=== PATIENT | male | born 1990 | race Caucasian/White ===

== ENCOUNTER 2017-08-17 13:36 | Inpatient (IN) | payer MEDICAID ==
[~2017-08-17] VITALS: Ht 180.3 cm; Wt 123.8 kg
[2017-08-17] MEDS ORDERED: DEPAKOTE ER500 MG PO (14:37)
[2017-08-17] MEDS ORDERED: ZYPREXA ZYDIS20 MG PO (14:38)
[2017-08-17 15:01] LABS: PLATELET COUNT 256 x10^3mcL (130-400); RED CELL DISTRIBUTION WIDTH 12.5 % (11.5-14.5)
[2017-08-17 15:03] LABS: BASOPHIL % 0 % (0-2)
[2017-08-17 15:09] LABS: CALCIUM 8.4 mg/dL (8.5-10.1); CARBON DIOXIDE 24.7 mmol/L (21-32); CHLORIDE SERUM 96 mmol/L (98-107); CREATININE SERUM 0.9 mg/dL (0.7-1.3); GFR1 > 60 mL/min; GLUCOSE SERUM 107 mg/dL (74-106); POTASSIUM SERUM 3.2 mmol/L (3.5-5.1); SODIUM SERUM 132 mmol/L (136-145)
[2017-08-17 15:13] LABS: ALBUMIN 2.8 g/dL (3.4-5.0); ALKALINE PHOSPHATASE 91 U/L (46-116); ALT/SGPT 22 U/L (16-63); AST/SGOT 16 U/L (15-37); BILIRUBIN TOTAL 0.6 mg/dL (0.20-1.00); TOTAL PROTEIN, SERUM 7.5 g/dL (6.4-8.2)
[2017-08-17 17:11] LABS: MAGNESIUM 1.7 mg/dL (1.8-2.4); PHOSPHOROUS 2.7 mg/dL (2.5-4.9)
[2017-08-17 17:12] LABS: CHOLESTEROL/HDL RATIO 4.7
[2017-08-17 17:13] LABS: T3 TOTAL 0.54 ng/mL
[2017-08-17 17:19] LABS: FREE T4 1.31 ng/dL (0.76-1.46); FREE THYROXINE INDEX 2.8 ug/dL (1.4-4.5); T4(THYROXINE) 8.1 ug/dL (4.7-13.3)
[2017-08-17 18:17] VITALS: BP 118/51
[2017-08-17 20:57] VITALS: BP 104/54
[2017-08-18 05:21] VITALS: BP 101/51
[2017-08-18 06:44] LABS: CHLORIDE SERUM 100 mmol/L (98-107); GFR1 > 60 mL/min; GLUCOSE SERUM 108 mg/dL (74-106); MAGNESIUM 1.9 mg/dL (1.8-2.4); POTASSIUM SERUM 3.2 mmol/L (3.5-5.1); SODIUM SERUM 134 mmol/L (136-145)
[2017-08-18 06:50] LABS: BASOPHIL % 0.1 % (0-2); PLATELET COUNT 229 x10^3mcL (130-400); RED CELL DISTRIBUTION WIDTH 12.9 % (11.5-14.5)
[2017-08-18 08:56] VITALS: BP 109/56
[2017-08-18 12:17] VITALS: BP 117/63
[2017-08-18 13:32] LABS: UA SPECIFIC GRAVITY 1.025 (1.005-1.035); microscopic required? YES; urine erythrocyte NEGATIVE (NEGATIVE)
[2017-08-18 13:46] LABS: AMPHETAMINE QUAL UR NONE DETECTED (NEG <=1000)
[2017-08-18 17:18] VITALS: BP 102/52
[2017-08-18 21:02] VITALS: BP 117/58
[2017-08-19 05:28] VITALS: BP 108/43
[2017-08-19 06:45] LABS: BASOPHIL % 0.2 % (0-2); PLATELET COUNT 262 x10^3mcL (130-400); RED CELL DISTRIBUTION WIDTH 13.5 % (11.5-14.5)
[2017-08-19 06:55] LABS: CARBON DIOXIDE 23.5 mmol/L (21-32); CHLORIDE SERUM 102 mmol/L (98-107); CREATININE SERUM 0.9 mg/dL (0.7-1.3); GFR1 > 60 mL/min; GLUCOSE SERUM 98 mg/dL (74-106); POTASSIUM SERUM 3.8 mmol/L (3.5-5.1); SODIUM SERUM 136 mmol/L (136-145)
[2017-08-19 09:43] VITALS: BP 114/40
[2017-08-19 16:52] VITALS: BP 116/57
[2017-08-19 19:30] VITALS: BP 110/57
[2017-08-20 06:17] LABS: BASOPHIL % 0.3 % (0-2); PLATELET COUNT 303 x10^3mcL (130-400); RED CELL DISTRIBUTION WIDTH 13.7 % (11.5-14.5)
[2017-08-20 06:20] LABS: CALCIUM 8.4 mg/dL (8.5-10.1); CARBON DIOXIDE 26.6 mmol/L (21-32); CHLORIDE SERUM 104 mmol/L (98-107); CREATININE SERUM 0.8 mg/dL (0.7-1.3); GFR1 > 60 mL/min; GLUCOSE SERUM 92 mg/dL (74-106); POTASSIUM SERUM 4.1 mmol/L (3.5-5.1); SODIUM SERUM 136 mmol/L (136-145)
[2017-08-20 06:39] VITALS: BP 117/58
[2017-08-20 09:54] VITALS: BP 92/54
[2017-08-20] MEDS ORDERED: CLEOCIN HCL300 MG PO (10:16)
[2017-08-20 10:42] VITALS: BP 92/54
[2017-08-20 12:08] VITALS: Ht 180.3 cm; Wt 123.8 kg
[2017-08-20] MEDS ORDERED: LEVOFLOXACIN500 M1 PO (12:18)
== END 2017-08-20 13:21 | disposition home or self-care (01) | DRG 720 ==
LOC: ED 13:36 → MU 16:20 → DU 16:20 → MU 08-19 08:38
PROVIDERS: Emergency Medicine; Family Medicine
DX: A41.9 Sepsis, unspecified organism (principal); E43 Unspecified severe protein-calorie malnutrition; E87.1 Hypo-osmolality and hyponatremia; E83.42 Hypomagnesemia; F20.9 Schizophrenia, unspecified; B35.3 Tinea pedis; L03.115 Cellulitis of right lower limb; B96.4 Proteus (mirabilis) (morganii) as the cause of diseases classified elsewhere; B95.61 Methicillin susceptible Staphylococcus aureus infection as the cause of diseases classified elsewhere; B95.1 Streptococcus, group B, as the cause of diseases classified elsewhere; F10.239 Alcohol dependence with withdrawal, unspecified; Z68.35 Body mass index [BMI] 35.0-35.9, adult
CPT/HCPCS: 83880; 84439; 90715; G0480; J0295; J1885; J1956; J3490; J7030; Q0092

== ENCOUNTER 2017-08-21 10:46 | Emergency (ER) | payer MEDICAID ==
[~2017-08-21] VITALS: Ht 180.3 cm; Wt 104.3 kg
[~2017-08-21 10:46] MED LIST: CLEOCIN HCL300 MG PO; DEPAKOTE ER500 MG PO; LEVOFLOXACIN500 M1 PO; ZYPREXA ZYDIS20 MG PO
[2017-08-21 10:59] VITALS: Ht 180.3 cm; Wt 104.3 kg
[2017-08-21 11:55] LABS: BASOPHIL % 0.5 % (0-2); RED CELL DISTRIBUTION WIDTH 13.9 % (11.5-14.5)
[2017-08-21 11:58] LABS: PLATELET COUNT 406 x10^3mcL (130-400)
[2017-08-21 12:06] LABS: CARBON DIOXIDE 27.7 mmol/L (21-32); CHLORIDE SERUM 105 mmol/L (98-107); CREATININE SERUM 0.8 mg/dL (0.7-1.3); GFR1 > 60 mL/min; GLUCOSE SERUM 104 mg/dL (74-106); POTASSIUM SERUM 4.3 mmol/L (3.5-5.1); SODIUM SERUM 141 mmol/L (136-145)
[2017-08-21 12:10] LABS: ALKALINE PHOSPHATASE 86 U/L (46-116); ALT/SGPT 25 U/L (16-63); AST/SGOT 25 U/L (15-37); BILIRUBIN TOTAL 0.34 mg/dL (0.20-1.00); TOTAL PROTEIN, SERUM 7.6 g/dL (6.4-8.2)
[2017-08-21 12:11] LABS: ALBUMIN 2.3 g/dL (3.4-5.0)
[2017-08-21 13:51] LABS: microscopic required? NO
[2017-08-21 14:13] LABS: urine erythrocyte NEGATIVE (NEGATIVE)
[2017-08-21 15:44] LABS: T3 TOTAL 0.96 ng/mL
[2017-08-21 15:48] LABS: MAGNESIUM 2.5 mg/dL (1.8-2.4); PHOSPHOROUS 3.3 mg/dL (2.5-4.9)
[2017-08-21 15:53] LABS: FREE T4 1.29 ng/dL (0.76-1.46); T4(THYROXINE) 8.5 ug/dL (4.7-13.3)
[2017-08-21 15:54] LABS: CHOLESTEROL/HDL RATIO 28.2
[2017-08-21 15:56] LABS: AMPHETAMINE QUAL UR NONE DETECTED (NEG <=1000)
[2017-08-22 09:00] VITALS: BP 132/74
== END 2017-08-22 09:00 | disposition home or self-care (01) ==
LOC: ED 10:46
PROVIDERS: Emergency Medicine; Family Medicine
DX: L03.115 Cellulitis of right lower limb (principal)
CPT/HCPCS: 83880; 84439; J0295; J1956; J2270; J2405; J3490; J7030; Q0092

== ENCOUNTER 2017-08-30 12:03 | Emergency (ER) | payer MEDICAID ==
[~2017-08-30] VITALS: Ht 180.3 cm; Wt 120.7 kg
[2017-08-30 12:11] VITALS: Ht 180.3 cm; Wt 120.7 kg
[2017-08-30 13:49] LABS: BASOPHIL % 0.4 % (0-2); RED CELL DISTRIBUTION WIDTH 13.9 % (11.5-14.5)
[2017-08-30 13:56] LABS: CALCIUM 8.9 mg/dL (8.5-10.1); CARBON DIOXIDE 28.9 mmol/L (21-32); CHLORIDE SERUM 101 mmol/L (98-107); CREATININE SERUM 0.9 mg/dL (0.7-1.3); GFR1 > 60 mL/min; GLUCOSE SERUM 99 mg/dL (74-106); POTASSIUM SERUM 3.8 mmol/L (3.5-5.1); SODIUM SERUM 140 mmol/L (136-145)
[2017-08-30 14:06] LABS: PLATELET COUNT 674 x10^3mcL (130-400)
[2017-08-30 16:07] LABS: PHOSPHOROUS 3.4 mg/dL (2.5-4.9)
[2017-08-30 16:10] LABS: CHOLESTEROL/HDL RATIO 5.2; T3 TOTAL 1.03 ng/mL
[2017-08-30 16:56] LABS: microscopic required? NO
[2017-08-30 17:01] LABS: FREE T4 1.22 ng/dL (0.76-1.46); FREE THYROXINE INDEX 3.1 ug/dL (1.4-4.5); T4(THYROXINE) 9.2 ug/dL (4.7-13.3)
[2017-08-30 18:27] LABS: urine erythrocyte NEGATIVE (NEGATIVE)
[2017-08-30 18:39] LABS: AMPHETAMINE QUAL UR POSITIVE (NEG <=1000)
[2017-08-30 20:20] VITALS: BP 98/55
== END 2017-08-30 20:20 | disposition home or self-care (01) ==
LOC: ED 12:03
PROVIDERS: Emergency Medicine; Family Medicine
DX: L03.115 Cellulitis of right lower limb (principal); J45.909 Unspecified asthma, uncomplicated; F90.9 Attention-deficit hyperactivity disorder, unspecified type; F17.210 Nicotine dependence, cigarettes, uncomplicated
CPT/HCPCS: 83880; 84439; J0295; J1885; J3490; J7030; Q0092

== ENCOUNTER 2017-10-09 15:01 | Emergency (ER) | payer MEDICAID ==
[~2017-10-09] VITALS: Ht 180.3 cm; Wt 121.1 kg
[2017-10-09 15:07] VITALS: Ht 180.3 cm; Wt 121.1 kg
[2017-10-09 16:02] LABS: PLATELET COUNT 253 x10^3mcL (130-400)
[2017-10-09 16:06] LABS: BASOPHIL % 3.4 % (0-2); RED CELL DISTRIBUTION WIDTH 14.6 % (11.5-14.5)
[2017-10-09 16:21] LABS: CALCIUM 8.7 mg/dL (8.5-10.1); CARBON DIOXIDE 25.1 mmol/L (21-32); CHLORIDE SERUM 104 mmol/L (98-107); GFR1 > 60 mL/min; GLUCOSE SERUM 102 mg/dL (74-106); POTASSIUM SERUM 3.6 mmol/L (3.5-5.1); SODIUM SERUM 140 mmol/L (136-145)
[2017-10-09 16:26] LABS: ALBUMIN 3.4 g/dL (3.4-5.0); ALKALINE PHOSPHATASE 130 U/L (46-116); ALT/SGPT 20 U/L (16-63); AMYLASE 65 U/L (25-115); AST/SGOT 18 U/L (15-37); BILIRUBIN TOTAL 0.2 mg/dL (0.20-1.00); HDL CHOLESTEROL 47 mg/dL (40-60); LIPASE 117 IU/L (73-393); MAGNESIUM 2.3 mg/dL (1.8-2.4); TOTAL PROTEIN, SERUM 8.2 g/dL (6.4-8.2)
[2017-10-09 16:30] LABS: CHOLESTEROL 203 mg/dL (<200)
[2017-10-09 17:12] LABS: microscopic required? NO
[2017-10-09 17:17] LABS: UA SPECIFIC GRAVITY <=1.005 (1.005-1.035); urine erythrocyte NEGATIVE (NEGATIVE)
[2017-10-09 17:26] LABS: AMPHETAMINE QUAL UR NONE DETECTED (NEG <=1000)
[2017-10-09 18:10] VITALS: BP 117/70
== END 2017-10-09 18:10 | disposition home or self-care (01) ==
LOC: ED 15:01
PROVIDERS: Emergency Medicine
DX: R07.9 Chest pain, unspecified (principal); F20.89 Other schizophrenia; F31.89 Other bipolar disorder; F90.8 Attention-deficit hyperactivity disorder, other type; F17.210 Nicotine dependence, cigarettes, uncomplicated; F12.90 Cannabis use, unspecified, uncomplicated; E66.8 Other obesity; J45.909 Unspecified asthma, uncomplicated; Z71.6 Tobacco abuse counseling
CPT/HCPCS: 83880; 99406; G0480; J3490; Q0092

== ENCOUNTER 2017-10-18 17:42 | Emergency (ER) | payer MEDICAID ==
[~2017-10-18] VITALS: Ht 180.3 cm; Wt 118.4 kg
[2017-10-18 17:48] VITALS: BP 142/89; Ht 180.3 cm; Wt 118.4 kg
== END 2017-10-18 18:25 | disposition home or self-care (01) ==
LOC: ED 17:42
DX: F20.9 Schizophrenia, unspecified (principal); F32.9 Major depressive disorder, single episode, unspecified; J45.909 Unspecified asthma, uncomplicated; F90.9 Attention-deficit hyperactivity disorder, unspecified type; F41.9 Anxiety disorder, unspecified